=== PATIENT | female | born 1980 | race Two or more races ===

== ENCOUNTER 2017-10-15 21:52 | Emergency (ER) | payer OTHER ==
[2017-10-15] MEDS ORDERED: HYDROCODONE/ACETAMINOPHEN 5-325 MG TABLET PO ONE (22:47)
[2017-10-15] MEDS ORDERED: ONDANSETRON 4 MG TAB.RAPDIS PO ONE (22:47)
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
[2017-10-16] MEDS ORDERED: HYDROCODONE/ACETAMINOPHEN 5-325 MG (6 TAB/ER DISP) PO PRN (00:20)
[2017-10-16 00:48] VITALS: BP 101/55
== END 2017-10-16 00:48 | disposition home or self-care (01) ==
LOC: ER 21:52
DX: S00.81XA Abrasion of other part of head, initial encounter (principal); M54.5 Low back pain; M54.2 Cervicalgia; V43.52XA Car driver injured in collision with other type car in traffic accident, initial encounter
CPT/HCPCS: 99284; 72050; 72110; S0119